=== PATIENT | female | born 1980 | race Caucasian/White ===

== ENCOUNTER 2016-12-13 22:32 | Emergency (ER) | payer SELFPAY ==
--- NOTE | 2016-12-14 00:38 | ED.PDOC ---
History of Present Illness - General Chief Complaint: [employer] Problem Stated Complaint: odorous vaginal discharge Time Seen by Provider: 12/14/16 00:36 Source: patient Exam Limitations: no limitations - History of Present Illness Initial Comments: She stated that she had odorous vaginal discharge started yesterday Timing/Duration: yesterday Quality: other - none Onset Location: other - yesterday Radiation: none Activites at Onset: none Prior abdominal problems: none Sexual intercourse history: single partner Improving Factors: nothing Worsening Factors: nothing Associated Symptoms: denies symptoms Allergies/Adverse Reactions: Allergies NO KNOWN ALLERGY Allergy (Verified 04/12/16 15:58) Home Medications: Ambulatory Orders Citalopram Hydrobromide [Celexa] 40 mg PO DAILY 11/19/14 Quetiapine Fumarate [Seroquel] 50 mg PO TID 11/19/14 Quetiapine Fumarate [Seroquel] 600 mg PO BEDTIME 11/19/14 Trazodone HCl 50 mg PO BEDTIME 11/19/14 hydrOXYzine HCl [Atarax] 25 mg PO TID 11/19/14 Naproxen Sodium [Anaprox DS] 550 mg PO BID #20 tab 04/11/16 Acetaminophen W/ Codeine [Tylenol W/ CODEINE #3] 1 ea PO Q4H PRN #12 04/13/16 Naproxen Sodium [Anaprox DS] 550 mg PO BID #14 tab 04/13/16 Lvhcikswlfjzv-Mkbb-Ahewfaclld [Fioricet] 1 ea PO Q8H PRN #21 tab 07/08/16 Cyclobenzaprine HCl [Flexeril] 5 mg PO TID PRN #30 tab 07/08/16 predniSONE [Prednisone] 20 mg PO DAILY #5 tab 07/08/16 Doxycycline Hyclate 100 mg PO BID #10 cap 12/14/16 Metronidazole Vaginal 0.75 % VA BID #10 gel 12/14/16 Review of Systems - Review of Systems Constitutional: States: no symptoms reported EENTM: States: no symptoms reported Respiratory: States: no symptoms reported Cardiology: States: no symptoms reported Gastrointestinal/Abdominal: States: no symptoms reported Genitourinary: States: see HPI Musculoskeletal: States: no symptoms reported Skin: States: no symptoms reported Neurological: States: no symptoms reported Endocrine: States: no symptoms reported Hematologic/Lymphatic: States: no symptoms reported Past Medical History (General) - Patient Medical History Hx Seizures: No Hx Stroke: No Hx Dementia: No Hx Asthma: No Hx of COPD: No Hx Cardiac Disorders: No Hx Congestive Heart Failure: No Hx Pacemaker: No Hx Hypertension: No Hx Thyroid Disease: No Hx Diabetes: No Hx Gastroesophageal Reflux: No Hx Renal Disease: No Hx Cancer: No Hx of HIV: No Hx Hepatitis C: No Hx MRSA: No Hx Other PMH: Yes - hpv-cervical Hx Other - free text: 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 - Vaccination History Hx Tetanus, Diphtheria Vaccination: No Hx Influenza Vaccination: No Hx Pneumococcal Vaccination: No - Social History Hx Tobacco Use: Yes Hx Chewing Tobacco Use: No Hx Alcohol Use: Yes Hx Substance Use: No Hx Substance Use Treatment: No Hx Depression: No Hx Physical Abuse: No Hx Emotional Abuse: No Hx Suspected Abuse: No - Female History Patient : - unk Family Medical History - Family History Mother Family History: No Known Living Status: Still Living Physical Exam - Physical Exam General Appearance: Alert, Comfortable, No apparent distress Eyes, Ears, Nose, Throat Exam: PERRL/EOMI, normal ENT inspection, TMs normal Neck: non-tender, full range of motion, supple Cardiovascular/Respiratory: regular rate, rhythm, no M/R/G, normal peripheral pulses, no JVD Gastrointestinal/Abdominal: normal bowel sounds, non tender, soft Pelvic Exam: external exam normal, speculum exam normal, bimanual exam normal, no cerv. motion tender, discharge - thick white vaginal discharge Back Exam: normal inspection, no CVA tenderness Extremity: normal range of motion, non-tender, normal inspection Neurologic: no motor/sensory deficits, alert, normal mood/affect Skin Exam: normal color, warm/dry Lymphatic: no adenopathy Progress - Results/Orders Results/Orders: wet prep-positive for trichomonas;gc/chlamydia pending-sent out test;also given possible side effects of metronidazole vomiting with alcoholic beverages Departure - Departure Clinical Impression: Trichomonal leukorrhea vaginalis Time of Disposition: 02:15 Disposition: Discharge to Home or Self Care Condition: Good Departure Forms: ED Discharge - Pt. Copy, Patient Portal Self Enrollment Prescriptions: Doxycycline Hyclate 100 mg PO BID #10 cap Metronidazole Vaginal 0.75 % VA BID #10 gel Home Medications: Ambulatory Orders Citalopram Hydrobromide [Celexa] 40 mg PO DAILY 11/19/14 Quetiapine Fumarate [Seroquel] 50 mg PO TID 11/19/14 Quetiapine Fumarate [Seroquel] 600 mg PO BEDTIME 11/19/14 Trazodone HCl 50 mg PO BEDTIME 11/19/14 hydrOXYzine HCl [Atarax] 25 mg PO TID 11/19/14 Naproxen Sodium [Anaprox DS] 550 mg PO BID #20 tab 04/11/16 Acetaminophen W/ Codeine [Tylenol W/ CODEINE #3] 1 ea PO Q4H PRN #12 04/13/16 Naproxen Sodium [Anaprox DS] 550 mg PO BID #14 tab 04/13/16 Lsgttyscnarbd-Ajxx-Pyzoqhvltw [Fioricet] 1 ea PO Q8H PRN #21 tab 07/08/16 Cyclobenzaprine HCl [Flexeril] 5 mg PO TID PRN #30 tab 07/08/16 predniSONE [Prednisone] 20 mg PO DAILY #5 tab 07/08/16 Doxycycline Hyclate 100 mg PO BID #10 cap 12/14/16 Metronidazole Vaginal 0.75 % VA BID #10 gel 12/14/16
[2016-12-14 00:48] VITALS: TEMP 98.4
[2016-12-14] MEDS ORDERED: metroNIDAZOLE 500 MG TAB PO ONE (02:08)
[2016-12-14] MEDS ORDERED: DOXYCYCLINE TAB (ER DISPENSE) 100 MG CAP PO ONE (02:09)
[2016-12-14 03:41] VITALS: BP 120/74; O2SAT 100
== END 2016-12-14 02:45 | disposition home or self-care (01) ==
LOC: ER 22:32
DX: A59.00 Urogenital trichomoniasis, unspecified (principal); Z87.891 Personal history of nicotine dependence
CPT/HCPCS: 81001; 81025; 87210; 87491; 87591; J0696

== ENCOUNTER → 2017-10-15 | Outpatient (CLI) | payer OTHER | END | disposition home or self-care (01) | LOC: YCFC.O 12:38 | PROVIDERS: ATTEND Nurse Practitioner Family | DX: R30.0 Dysuria (principal) ==